=== PATIENT | male | born 1965 | race Caucasian/White ===

== ENCOUNTER 2019-04-11 16:25 | Emergency (ER) | payer OTHER, SELFPAY ==
[2019-04-11 16:35] VITALS: BP 150/99; PULSE 79; RESP 18; TEMP 37.3; O2SAT 95; BMI 32.5
--- NOTE | 2019-04-11 18:13 | ED.SKABFB ---
HPI - Skin/Abscess/Foreign Bdy General Chief complaint: Skin/Abscess/Foreign Body Stated complaint: Infection in face Time Seen by Provider: 04/11/19 18:02 Source: patient Mode of arrival: ambulatory Limitations: no limitations History of Present Illness HPI narrative: Patient is a 54-year-old presents with rash and swelling on his face. He says the he started last night over his nose and actually has progressed over his right cheek while sitting in the waiting room. She had some body aches and sweats last night. He also said he started getting some shortness of breath with exertion is yesterday as well. He does not really have chest pain he has a slight cough but not productive. He states he was using some sort of auto body protector on Friday and this started the following day. There is also some sanding done on Friday as well he is not sure if his it is an allergic reaction. He does feel like his neck is swollen and his voice is raspy. He said his nose with a little itchy initially but he really has no rash anywhere else. As he is able to manage his own secretions his tongue does not feel big. Related Data Home Medications Medication Instructions Recorded Confirmed aspirin 1 tab PO DAILY 04/11/19 04/11/19 atorvastatin 10 mg PO DAILY 04/11/19 04/11/19 methotrexate sodium 5 tab PO WEEKLY 04/11/19 04/11/19 Previous Rx's Medication Instructions Recorded doxycycline hyclate 100 mg PO BID #14 cap 04/11/19 Allergies Allergy/AdvReac Type Severity Reaction Status Date / Time No Known Drug Allergies Allergy Verified 04/11/19 16:30 Review of Systems Review of Systems ROS Unobtainable: All systems reviewed & are unremarkable except as noted in HPI and below Constitutional Reports chills, Reports fever(s), Denies lethargy and Denies weakness Eyes Denies change in vision, Denies eye discharge, Denies irritation and Denies loss of vision ENT Ears, Nose, Mouth, and Throat: Reports as per HPI and Reports hoarseness Cardiovascular Denies chest pain, Denies chest pain at rest, Denies edema and Reports dyspnea on exertion Respiratory Reports cough and Reports dyspnea on exertion Gastrointestinal Gastrointestinal: Denies abdominal pain, Denies change in bowel habits, Denies diarrhea, Denies nausea and Denies vomiting Genitourinary Denies hematuria, Denies flank pain, Denies urinary incontinence and Denies urinary urgency Musculoskeletal Denies back pain, Denies muscle weakness, Denies numbness and Denies tingling Integumentary/Breasts Reports as per HPI, Reports pruritus, Reports rash and Reports skin swelling Neurologic Denies confusion, Denies loss of vision, Denies numbness, Denies tingling and Denies weakness Psychiatric Denies anxiety, Denies confusion, Denies depression, Denies homicidal ideation and Denies suicidal ideation [facility] Medical History (Updated 04/11/19 @ 19:36 by Jo Sims DO) Coronary artery disease (Acute) Rheumatoid arthritis (Acute) Surgical History (Updated 04/11/19 @ 19:01 by Benito Martin RN) History of heart artery stent (Acute) Social History Smoking Status: Never smoker Social History Smoking Status: Never smoker Exam Initial Vital Signs Initial Vital Signs: Vital Signs Temperature 99.2 F 04/11/19 16:35 Pulse Rate 79 04/11/19 16:35 Respiratory Rate 18 04/11/19 16:35 Blood Pressure 150/99 H 04/11/19 16:35 Pulse Oximetry 95 04/11/19 16:35 GENERAL: Alert pleasant middle-aged male no acute distress HEENT: Head atraumatic,EOMI, pupils reactive, bilateral anterior cervical lymphadenopathy CARDIOVASCULAR: Regular rate and rhythm without murmurs, rubs or gallops. RESPIRATORY: Breath sounds equal bilaterally, no wheezes rales or rhonchi. Minimal hoarseness managing on secretions no stridor ABDOMEN: Soft, nontender. Normoactive bowel sounds all 4 quadrants. No guarding or rebound. EXTREMITIES: Normal range of motion, no clubbing or edema. Neurovascularly intact NEUROLOGICAL: Alert and oriented x4.Normal gait and speech. Cranial nerves II through XII grossly intact. SKIN: Right cheek 4 cm x 3 cm erythema his entire nose is swollen and erythematous a little bit over onto the left cheek as well. Course Orders Ordered: ED Orders 04/11/19 18:16 Complete Blood Count AUTO DIFF Stat Comprehensive Metabolic Panel Stat Lactate (Lactic Acid) Stat Lipase Stat Partial Thromboplastin Time Stat Procalcitonin Stat Prothrombin Time INR Stat Troponin & CK Cardiac Panel Stat 04/11/19 18:21 XR chest 1V Stat EKG-12 Lead Stat 04/11/19 18:35 Blood Culture Stat Discontinued Medications Doxycycline Hyclate (Vibramycin) 100 mg PO NOW ONE Stop: 04/11/19 19:40 Last Admin: 04/11/19 19:44 Dose: 100 mg Methylprednisolone (Solu-Medrol 125 Mg Vial) 125 mg IV NOW ONE Stop: 04/11/19 18:25 Last Admin: 04/11/19 18:39 Dose: 125 mg Vital Signs - 8 hr 04/11/19 19:52 Temperature 98.6 F Pulse Rate 73 Respiratory Rate 15 Blood Pressure 149/84 H Pulse Oximetry 96 MDM - Skin/Abscess/Foreign Bdy Lab Data Attestation: I reviewed the patient's lab results. Result diagrams: 04/11/19 18:16 04/11/19 18:16 Lab Results 04/11/19 04/11/19 04/11/19 Range/Units 18:16 18:16 18:16 WBC 10.9 (4.5-11.0) X10^3/uL RBC 5.28 (4.5-5.9) X10^6/uL Hgb 15.8 (13.5-17.5) g/dL Hct 45.8 (41-53) % MCV 86.7 (80-100) fL MCH 29.9 (26-34) PG MCHC 34.5 (30-36) % RDW 15.0 H (11.6-14.8) % Plt Count 184 (150-400) X10^3/uL Neut % (Auto) 68.2 (50-75) % Lymph % (Auto) 20.5 L (25-40) % Cors[place] % (Auto) 9.5 (3-14) % Eos % (Auto) 1.1 L (2-4) % Baso % (Auto) 0.7 (0-2) % Neut # (Auto) 7400 H (7560-1488) /uL Lymph # (Auto) 2200 (1242-6026) /uL Corson # (Auto) 1000 H (0-900) /uL Eos # (Auto) 100 (0-450) /uL Baso # (Auto) 100 (0-100) /uL PT 12.5 (10.1-12.7) SECONDS INR 1.1 (0.9-1.3) APTT 31 (26.4-36.2) SECONDS Sodium (137-145) mmol/L Potassium (3.4-5.1) mmol/L Chloride (98-107) mmol/L Carbon Dioxide (22-32) mmol/L BUN (9-20) mg/dL Creatinine (0.66-1.25) mg/dL Estimated GFR (>60) mL/min BUN/Creatinine Ratio (6-22) Glucose (70-100) mg/dL Lactate (0.7-2.1) mmol/L Calcium (8.4-10.2) mg/dL Total Bilirubin (0.2-1.3) mg/dL AST (17-59) IU/L ALT (21-72) IU/L Alkaline Phosphatase (38-126) U/L Total Creatine Kinase (55-170) U/L CK-MB (CK-2) (<2.37) ng/mL CK-MB (CK-2) Rel Index (1.5-5.0) % Troponin I (0.01-0.034) ng/mL Total Protein (6.3-8.2) g/dL Albumin (3.5-5.0) g/dL Globulin (1.7-4.1) g/dL Albumin/Globulin Ratio (1.0-2.8) Lipase (23-300) U/L Procalcitonin 0.17 (<0.5) ng/mL 04/11/19 04/11/19 04/11/19 Range/Units 18:16 18:16 18:16 WBC (4.5-11.0) X10^3/uL RBC (4.5-5.9) X10^6/uL Hgb (13.5-17.5) g/dL Hct (41-53) % MCV (80-100) fL MCH (26-34) PG MCHC (30-36) % RDW (11.6-14.8) % Plt Count (150-400) X10^3/uL Neut % (Auto) (50-75) % Lymph % (Auto) (25-40) % Corson % (Auto) (3-14) % Eos % (Auto) (2-4) % Baso % (Auto) (0-2) % Neut # (Auto) (0112-7777) /uL Lymph # (Auto) (5974-4089) /uL Corson # (Auto) (0-900) /uL Eos # (Auto) (0-450) /uL Baso # (Auto) (0-100) /uL PT (10.1-12.7) SECONDS INR (0.9-1.3) APTT (26.4-36.2) SECONDS Sodium 138 (137-145) mmol/L Potassium 3.7 (3.4-5.1) mmol/L Chloride 98 (98-107) mmol/L Carbon Dioxide 30 (22-32) mmol/L BUN 17 (9-20) mg/dL Creatinine 1.10 (0.66-1.25) mg/dL Estimated GFR > 60.0 (>60) mL/min BUN/Creatinine Ratio 15.5 (6-22) Glucose 97 (70-100) mg/dL Lactate 1.3 (0.7-2.1) mmol/L Calcium 9.3 (8.4-10.2) mg/dL Total Bilirubin 1.4 H (0.2-1.3) mg/dL AST 26 (17-59) IU/L ALT 32 (21-72) IU/L Alkaline Phosphatase 73 (38-126) U/L Total Creatine Kinase 153 (55-170) U/L CK-MB (CK-2) 0.23 (<2.37) ng/mL CK-MB (CK-2) Rel Index 0.2 L (1.5-5.0) % Troponin I < 0.012 (0.01-0.034) ng/mL Total Protein 8.2 (6.3-8.2) g/dL Albumin 4.5 (3.5-5.0) g/dL Globulin 3.7 (1.7-4.1) g/dL Albumin/Globulin Ratio 1.2 (1.0-2.8) Lipase 46 (23-300) U/L Procalcitonin (<0.5) ng/mL MDM Narrative Medical decision making narrative: The patient actually does not appear septic. Redness has not significantly worsened while he has been under my care. At this time I feel it is reasonable to try outpatient antibiotics. He was given a dose of steroids to see if it might be possible allergic. Who is placed on doctors clean help cover for strep and MRSA. He really has no risk factors for MRSA. I have given he and his signs and symptoms of when to return to the emergency department. Otherwise follow up with PCP. They both agree. Discharge Plan Departure Patient Disposition: Home Clinical Impression: Cellulitis Qualifiers: Site of cellulitis: face Qualified Code(s): L03.211 - Cellulitis of face Discharge Date/Time: 04/11/19 19:53 Interventions: ED Discharge Assessment Last Done: 04/11/19 19:52 Instructions: DI for Cellulitis -- Adult Activity Restrictions/Additional Instructions: *You have been diagnosed with facial cellulitis *What to do: Expect to have some swelling on in the morning. Antibiotics should start working in an attic 24-48 hours. *Continue to take medications as directed Doxycycline 100 mg twice a day for 7 days *Follow up with your primary care provider in 2-3 days *Return to ER if you should have significantly worsening all redness and facial swelling any difficulty breathing or any new, worsening or concerning symptoms Prescriptions: New doxycycline hyclate 100 mg capsule 100 mg PO BID Qty: 14 RF: 0 No Action atorvastatin 10 mg Tablet 10 mg PO DAILY RF: 0 aspirin 325 mg Tablet 1 tab PO DAILY RF: 0 methotrexate sodium 2.5 mg Tablet 5 tab PO WEEKLY RF: 0 Referrals: Slava Silva MD [Primary Care Provider] -
--- NOTE | 2019-04-11 18:21 | DI.RAD.S_ITS ---
PROCEDURE: XR CHEST 1V INDICATIONS: short of breath TECHNIQUE: One view of the chest was acquired. COMPARISON: [facility], , CHEST 1VW (PORTABLE), 02/01/2007, 15:33. FINDINGS: Surgical changes and devices: None. Lungs and pleura: Lungs are clear. No pleural effusions or pneumothorax. Mediastinum: Mediastinal contours appear normal. Heart size is normal. Bones and chest wall: No suspicious bony lesions. Overlying soft tissues appear unremarkable. IMPRESSION: Stable chest. No acute cardiopulmonary process is evident. Dictated by: Norbert Cantrell M.D. on 04/11/2019 at 18:55 Approved by: Norbert Cantrell M.D. on 04/11/2019 at 18:55
[2019-04-11 18:26] LABS: Add Manual Diff / Slide Review NO; Basophils Absolute Auto 100 /uL (0-100); Basophils Percent Auto 0.7 % (0-2); Eosinophils Absolute Auto 100 /uL (0-450); Eosinophils Percent Auto 1.1 % (2-4); Hematocrit 45.8 % (41-53); Hemoglobin 15.8 g/dL (13.5-17.5); Lymphocytes Absolute Auto 2200 /uL (1100-4500); Lymphocytes Percent Auto 20.5 % (25-40); Mean Corpuscular HGB Conc 34.5 % (30-36); Mean Corpuscular Hemoglobin 29.9 PG (26-34); Mean Corpuscular Volume 86.7 fL (80-100); Monocytes Absolute Auto 1000 /uL (0-900); Monocytes Percent Auto 9.5 % (3-14); Neutrophils Absolute Auto 7400 /uL (1500-7000); Neutrophils Percent Auto 68.2 % (50-75); Platelet Count 184 X10^3/uL (150-400); Red Blood Cell Count 5.28 X10^6/uL (4.5-5.9); White Blood Cell Count 10.9 X10^3/uL (4.5-11.0)
[2019-04-11 18:33] LABS: INR 1.1 (0.9-1.3); Prothrombin Time 12.5 SECONDS (10.1-12.7)
[2019-04-11 18:35] LABS: PTT Partial Thromboplastin Tim 31 SECONDS (26.4-36.2)
[2019-04-11 18:38] LABS: Lactate (Lactic Acid) 1.3 mmol/L (0.7-2.1)
[2019-04-11 18:39] LABS: Alanine Aminotransferase 32 IU/L (21-72); Albumin 4.5 g/dL (3.5-5.0); Albumin Globulin Ratio 1.2 (1.0-2.8); Alkaline Phosphatase 73 U/L (38-126); Aspartate Aminotransferase 26 IU/L (17-59); BUN Creatinine Ratio 15.5 (6-22); Bilirubin Total 1.4 mg/dL (0.2-1.3); Blood Urea Nitrogen 17 mg/dL (9-20); Calcium 9.3 mg/dL (8.4-10.2); Carbon Dioxide 30 mmol/L (22-32); Chloride 98 mmol/L (98-107); Estimated Glomerular Filt Rate > 60.0 mL/min (>60); Globulin 3.7 g/dL (1.7-4.1); Glucose 97 mg/dL (70-100); HEMOLYSIS < 15 (0-50); Lipase 46 U/L (23-300); Potassium 3.7 mmol/L (3.4-5.1); Sodium 138 mmol/L (137-145); Total Protein 8.2 g/dL (6.3-8.2)
[2019-04-11] MEDS: methylPREDNISolone 125 MG/2 ML VIAL IV (18:39)
[2019-04-11 18:42] LABS: Creatine Kinase 153 U/L (55-170)
[2019-04-11 18:54] LABS: Procalcitonin 0.17 ng/mL (<0.5)
[2019-04-11 18:55] LABS: Troponin I < 0.012 ng/mL (0.01-0.034)
[2019-04-11 18:57] LABS: CKMB % Relative Index 0.2 % (1.5-5.0); Creatine Kinase MB 0.23 ng/mL (<2.37)
[2019-04-11] MEDS: DOXYCYCLINE HYCLATE 100 MG TABLET PO (19:44)
[2019-04-11 19:52] VITALS: BP 149/84; PULSE 73; RESP 15; TEMP 37; O2SAT 96
== END 2019-04-11 19:53 | disposition home or self-care (01) ==
PROVIDERS: Emergency Medicine; Emergency Provider Emergency Medicine; PCP Family Medicine
DX: L03.211 Cellulitis of face (principal); R06.02 Shortness of breath
CPT/HCPCS: 36415; 36591; 71045; 80053; 82550; 82553; 83605; 83690; 84145; 84484; 85025; 85610; 85730; 87040; 93005; 96374; 99282; 99285; J2930

== ENCOUNTER → 2021-01-26 12:44 | Outpatient (CLI) | payer OTHER, SELFPAY ==
[2021-01-26] MEDS: COVID-19 VACC #1, MRNA(MOD) 100 MCG/0.5 ML VIAL IM (12:52)
== END ==
PROVIDERS: Visit Provider Internal Medicine
DX: Z23 Encounter for immunization (principal)
CPT/HCPCS: 0011A; 91301

== ENCOUNTER → 2021-02-23 12:43 | Outpatient (CLI) | payer OTHER, SELFPAY ==
[2021-02-23] MEDS: COVID-19 VACC #1, MRNA(MOD) 100 MCG/0.5 ML VIAL IM (12:57)
== END ==
PROVIDERS: Visit Provider Internal Medicine
DX: Z23 Encounter for immunization (principal)
CPT/HCPCS: 0011A; 91301

== ENCOUNTER → 2024-02-12 16:19 | Outpatient (CLI) | payer MEDICARE, SELFPAY ==
[2024-02-12 17:23] LABS: Alanine Aminotransferase 29 IU/L (<50); Albumin 4.5 g/dL (3.5-5.0); Albumin Globulin Ratio 1.5 (1.0-2.8); Alkaline Phosphatase 74 U/L (38-126); Aspartate Aminotransferase 29 IU/L (17-59); BUN Creatinine Ratio 18.9 (6-22); Bilirubin Total 0.9 mg/dL (0.2-1.3); Blood Urea Nitrogen 14 mg/dL (9-20); Calcium 9.1 mg/dL (8.4-10.2); Carbon Dioxide 27 mmol/L (22-32); Chloride 105 mmol/L (98-107); Estimated Glomerular Filt Rate > 60 mL/min (>60); Glucose 140 mg/dL (80-110); HEMOLYSIS < 15 (0-50); Potassium 3.5 mmol/L (3.4-5.1); Sodium 139 mmol/L (137-145); Total Protein 7.5 g/dL (6.3-8.2)
[2024-02-12 17:51] LABS: TSH w/ Reflex to FT4 0.71 uIU/mL (0.47-4.68)
[2024-02-12 18:02] LABS: Hemoglobin A1C% w Est Avg Glu 5.3 % (4.0-6.0)
== END ==
PROVIDERS: PCP Nurse Practitioner Family; Referring Provider Nurse Practitioner Family; Visit Provider Nurse Practitioner Family
DX: Z13.29 Encounter for screening for other suspected endocrine disorder (principal); Z13.1 Encounter for screening for diabetes mellitus; E78.5 Hyperlipidemia, unspecified; M06.9 Rheumatoid arthritis, unspecified
CPT/HCPCS: 36415; 80053; 83036; 84443

== ENCOUNTER → 2024-06-04 13:25 | Outpatient (CLI) | payer MEDICARE, SELFPAY ==
[2024-06-04 13:53] LABS: Add Manual Diff / Slide Review NO; Basophils Absolute Auto 0 /uL (0-100); Basophils Percent Auto 0.9 % (0-2); Eosinophils Absolute Auto 200 /uL (0-450); Eosinophils Percent Auto 2.9 % (2-4); Hematocrit 41.7 % (41-53); Hemoglobin 14.5 g/dL (13.5-17.5); Lymphocytes Absolute Auto 1500 /uL (1100-4500); Lymphocytes Percent Auto 26.2 % (25-40); Mean Corpuscular HGB Conc 34.7 % (30-36); Mean Corpuscular Hemoglobin 29.6 PG (26-34); Mean Corpuscular Volume 85.3 fL (80-100); Monocytes Absolute Auto 400 /uL (0-900); Monocytes Percent Auto 6.7 % (3-14); Neutrophils Absolute Auto 3700 /uL (1500-7000); Neutrophils Percent Auto 63.3 % (50-75); Platelet Count 240 X10^3/uL (150-400); Red Blood Cell Count 4.89 X10^6/uL (4.5-5.9); Red Cell Distribution Width 16.1 % (11.6-14.8); White Blood Cell Count 5.8 X10^3/uL (4.5-11.0)
[2024-06-04 14:15] LABS: Alanine Aminotransferase 35 IU/L (<50); Albumin 4.5 g/dL (3.5-5.0); Albumin Globulin Ratio 1.4 (1.0-2.8); Alkaline Phosphatase 73 U/L (38-126); Aspartate Aminotransferase 32 IU/L (17-59); BUN Creatinine Ratio 12.4 (6-22); Blood Urea Nitrogen 12 mg/dL (9-20); C-Reactive Protein Quant < 0.5 mg/dL (<1.0); Calcium 9.2 mg/dL (8.4-10.2); Carbon Dioxide 26 mmol/L (22-32); Chloride 107 mmol/L (98-107); Estimated Glomerular Filt Rate > 60 mL/min (>60); Globulin 3.3 g/dL (1.7-4.1); Glucose 96 mg/dL (80-110); HEMOLYSIS 26 (0-50); Potassium 4.3 mmol/L (3.4-5.1); Sodium 140 mmol/L (137-145); Total Protein 7.8 g/dL (6.3-8.2)
[2024-06-04 14:29] LABS: Erythrocyte Sedimentation Rate 13 MM/HR (0-15)
== END ==
PROVIDERS: PCP Nurse Practitioner Family; Referring Provider Physician Assistant; Visit Provider Physician Assistant
DX: M06.09 Rheumatoid arthritis without rheumatoid factor, multiple sites (principal); Z79.899 Other long term (current) drug therapy; M25.50 Pain in unspecified joint
CPT/HCPCS: 36415; 80053; 85025; 85651; 86140

== ENCOUNTER → 2024-06-17 08:11 | Outpatient (CLI) | payer MEDICARE, SELFPAY ==
[2024-06-17 11:25] LABS: Cholesterol 111 mg/dL (140-199); HDL Cholesterol 34 mg/dL (40-60); LDL Cholesterol Calculated 59 mg/dL (<100); Triglycerides 89 mg/dL (35-150)
[2024-06-17 11:51] LABS: Prostate Specific Antigen Scrn 2.04 ng/mL (0.1-4.0)
== END ==
PROVIDERS: PCP Nurse Practitioner Family; Referring Provider Nurse Practitioner Family; Visit Provider Nurse Practitioner Family
DX: E78.5 Hyperlipidemia, unspecified (principal); Z12.5 Encounter for screening for malignant neoplasm of prostate; R30.9 Painful micturition, unspecified
CPT/HCPCS: 36415; 80061; 87086; G0103

== ENCOUNTER 2024-07-30 12:25 | Day surgery (SDC) | payer MEDICARE, SELFPAY ==
[2024-07-30 13:17] VITALS: BP 151/71; PULSE 57; RESP 16; TEMP 36.1; O2SAT 98
[2024-07-30] MEDS: LACTATED RINGERS 1,000 ML 42 ML IV (13:39)
--- NOTE | 2024-07-30 13:50 | PM.HP.1 ---
History of Present Illness History of Present Illness Date Patient Seen: 07/30/24 Time Patient Seen: 13:51 Chief complaint: Screening Colonoscopy Narrative: 59-year-old male here for 1st time screening colonoscopy. No family history of colon cancer. No abdominal concerns today. [facility] Medical History BPH w/o urinary obs/LUTS Sleep apnea Allergies (~2019) Joint pain Carpal tunnel syndrome (~2011) Ankle pain (~2014) Mumps (~1968) Chicken pox (~1970) Hearing loss (~2002) History of heart attack Hypertension (~2000) Folliculitis barbae Skin lesions (~2023) Hyperlipidemia Coronary artery disease Rheumatoid arthritis Surgical History Anesthesia History of hip surgery (~2020) History of carpal tunnel surgery (~2011) History of heart artery stent Family History Mother History of heart disease Hypertension Hyperlipidemia Social History Smoking Status: Never smoker Meds Home Medications and Allergies Home Medications Medication Instructions Recorded Confirmed Type aspirin 325 mg tablet 1 tab PO DAILY 04/11/19 07/30/24 History methotrexate sodium 2.5 mg tablet 5 tab PO WEEKLY 04/11/19 07/23/24 History atorvastatin 10 mg tablet 40 mg PO DAILY 06/17/24 07/23/24 History losartan 25 mg tablet 25 mg PO BID 06/17/24 07/23/24 History clindamycin 1 %-benzoyl peroxide 5 1 applic topical DAILY #50 grams 07/23/24 07/23/24 Rx % topical gel with pump doxycycline hyclate 100 mg tablet 100 mg PO DAILY #42 tabs 07/23/24 07/23/24 Rx tamsulosin 0.4 mg capsule 0.8 mg (2 x 0.4 mg) PO DAILY #180 07/23/24 07/23/24 Rx caps Allergies Allergy/AdvReac Type Severity Reaction Status Date / Time amoxicillin Allergy Severe Hives Verified 07/30/24 13:09 Exam Vital Signs (past 8 hours): - 07/30/24 13:17 Temperature 97 F L Pulse Rate 57 L Respiratory Rate 16 Blood Pressure 151/71 H Pulse Oximetry 98 Oxygen Delivery Method Room Air Oxygen Delivery Method Room Air Narrative Exam Narrative: General adult man alert oriented no acute distress Chest nonlabored respiration Extremities warm well perfused Assessment & Plan Assessment & Plan narrative: The patient requires colorectal screening and colonoscopy is recommended. Technical details were discussed. Risks, benefits, alternatives explained. Risks including but not limited to myocardial infarction, aspiration, bleeding, pain, missed lesion, incomplete examination, need for further radiographic studies, intestinal injury, and need for major abdominal surgery were discussed. All questions were answered to their satisfaction, and they are in agreement with this plan. Time-Based Coding :: [TOTAL MINUTES] spent with patient and on the chart (including review of chart, obtaining history, exam, reviewing outside data, placing orders, documenting exam and treatment plan, and counseling patient) on [DATE].
[2024-07-30 14:20] VITALS: BP 94/52; PULSE 56; RESP 12; TEMP 36.3; O2SAT 98
[2024-07-30 14:24] VITALS: BP 102/57; PULSE 58; RESP 17; O2SAT 98
--- NOTE | 2024-07-30 14:25 | P.OP.COLON_ITS ---
Operative Date/Time/Diagnoses Date of procedure: 07/30/24 Time of procedure: 14:25 Pre-op diagnosis: Screening Procedure & Clinicians Study performed: Screening colonoscopy Same procedure as scheduled: Yes Indications: Screening Surgeon: Abraham Hutchins Procedure Notes Procedure in detail: The history and physical was performed/updated and the patient is ASA class is 2. The procedure was discussed in detail with the patient. Potential risks complications including infection, bleeding, missed diagnosis, perforation, need for surgery, and were explained. Their questions were answered and informed consent was obtained. Patient was brought to the procedure room and placed standard monitoring equipment. The patient's vital signs were monitored continuously throughout the entire procedure. Prior to starting time-out was performed. The patient was placed in the left lateral recumbent position. Procedural sedation was administered by anesthesia. Examination began with a thorough inspection of the perianal area there was no evidence of fissures, fistulae, external hemorrhoids or cutaneous malignancy. The colonoscopy scope was then placed into the anal canal and was advanced to the cecum, which was identified by the ileocecal valve, the appendiceal orifice and the confluence of the taenia. The scope was then slowly withdrawn examining colon thoroughly in all directions, irrigating it of any residual stool. The scope was retroflexed within the rectum The patient tolerated the procedure well. They will be discharged once criteria are met. The prep was of good/excellent quality. The withdrawl time was 7 minutes. FINDINGS * Unremarkable colonoscopy. Normal healthy colonic mucosa without mass or polyps. Specimen(s): none sent Impression: Normal colonoscopy Post-procedure Recommendations: Colonoscopy in 10 years Disposition: same day surgery
[2024-07-30 14:30] VITALS: BP 108/65; PULSE 58; RESP 12; O2SAT 97
== END 2024-07-30 14:40 | disposition home or self-care (01) ==
PROVIDERS: PCP Nurse Practitioner Family; Referring Provider Surgery; Visit Provider Surgery
PROC: 0DJD8ZZ Inspection of Lower Intestinal Tract, Via Natural or Artificial Opening Endoscopic (ICD-10-PCS; CPT 45378; principal; 2024-07-30 14:00)
DX: Z12.11 Encounter for screening for malignant neoplasm of colon (principal)
CPT/HCPCS: G0121; J2704

== ENCOUNTER → 2024-10-28 08:19 | Outpatient (CLI) | payer MEDICARE, SELFPAY ==
[2024-10-28 08:48] LABS: Appearance Urine UA CLEAR; Bilirubin Urine UA NEGATIVE (NEGATIVE); Color Urine UA YELLOW; Glucose Urine UA NEGATIVE (Negative); Ketones Urine UA NEGATIVE (NEGATIVE); Leukocyte Esterase Urine UA NEGATIVE (NEGATIVE); Nitrite Urine UA NEGATIVE (Negative); Occult Blood Urine UA 1+ (Negative); Protein Urine UA NEGATIVE (Negative); Specific Gravity Urine UA 1.025 (1.000-1.035); Urobilinogen Urine UA 0.2 E.U./dL (0.2); pH Urine UA 5.5 (4.5-8.0)
[2024-10-28 09:02] LABS: Bacteria Urine Occasional (0-1); Culture Indicated Urine Cult Not Indicated; Hyaline Casts Urine 0-1/LPF; RBC Urine 5-10/HPF (0-5/HPF); Squamous Epithelial Cell Urine 5-10 /HPF (0-5/HPF); Urine Volume 10mL (spun); WBC Urine 0-1/HPF (0-5/HPF)
== END ==
PROVIDERS: PCP Nurse Practitioner Family; Visit Provider Nurse Practitioner Family
DX: R31.9 Hematuria, unspecified (principal); R30.0 Dysuria
CPT/HCPCS: 81003; 81015

== ENCOUNTER → 2024-10-28 08:34 | Outpatient (CLI) | payer MEDICARE, SELFPAY ==
[2024-10-28 09:14] LABS: Add Manual Diff / Slide Review NO; Basophils Absolute Auto 0 /uL (0-100); Basophils Percent Auto 0.6 % (0-2); Eosinophils Absolute Auto 100 /uL (0-450); Eosinophils Percent Auto 2.5 % (2-4); Hematocrit 42.3 % (41-53); Hemoglobin 14.1 g/dL (13.5-17.5); Lymphocytes Absolute Auto 1100 /uL (1100-4500); Lymphocytes Percent Auto 20.5 % (25-40); Mean Corpuscular HGB Conc 33.3 % (30-36); Mean Corpuscular Hemoglobin 29.1 PG (26-34); Mean Corpuscular Volume 87.3 fL (80-100); Monocytes Absolute Auto 400 /uL (0-900); Monocytes Percent Auto 6.6 % (3-14); Neutrophils Absolute Auto 3900 /uL (1500-7000); Neutrophils Percent Auto 69.8 % (50-75); Platelet Count 156 X10^3/uL (150-400); Red Blood Cell Count 4.85 X10^6/uL (4.5-5.9); Red Cell Distribution Width 16.1 % (11.6-14.8); White Blood Cell Count 5.6 X10^3/uL (4.5-11.0)
[2024-10-28 09:44] LABS: Alanine Aminotransferase 33 IU/L (<50); Albumin 3.8 g/dL (3.5-5.0); Albumin Globulin Ratio 1.3 (1.0-2.8); Alkaline Phosphatase 73 U/L (38-126); Aspartate Aminotransferase 25 IU/L (17-59); BUN Creatinine Ratio 20.7 (6-22); Bilirubin Total 0.9 mg/dL (0.2-1.3); Blood Urea Nitrogen 18 mg/dL (9-20); Calcium 9.3 mg/dL (8.4-10.2); Carbon Dioxide 30 mmol/L (22-32); Chloride 106 mmol/L (98-107); Estimated Glomerular Filt Rate > 60 mL/min (>60); Glucose 96 mg/dL (80-110); HEMOLYSIS < 15 (0-50); Potassium 3.9 mmol/L (3.4-5.1); Sodium 139 mmol/L (137-145); Total Protein 6.8 g/dL (6.3-8.2)
== END ==
PROVIDERS: PCP Nurse Practitioner Family; Referring Provider Nurse Practitioner Family; Visit Provider Nurse Practitioner Family
DX: R31.9 Hematuria, unspecified (principal); R30.0 Dysuria
CPT/HCPCS: 36415; 80053; 81003; 81015; 85025

== ENCOUNTER → 2024-10-29 12:44 | Outpatient (CLI) | payer MEDICARE, SELFPAY ==
--- NOTE | 2024-10-29 12:44 | DI.CT.S_ITS ---
PROCEDURE: CT KIDNEY URETER BLADDER (KUB) INDICATIONS: Hematuria TECHNIQUE: Axial sections were acquired from the lung bases to the pubic symphysis. Coronal and sagittal reformats were performed. For radiation dose reduction, the following was used: automated exposure control, adjustment of mA and/or kV according to patient size. COMPARISON: None. FINDINGS: Image quality: Diagnostic. Lower Chest: No significant findings. URINARY: Right Kidney: No stones or hydronephrosis. Right Ureter: No hydroureter. Left Kidney: No stones or hydronephrosis. There is a 2.9 cm exophytic left lower renal cortical pole cyst. Left Ureter: No hydroureter. Bladder: Normal wall thickness. No stones. ABDOMEN: Liver: No contour-deforming solid mass. Gallbladder: No radiopaque gallstones or wall thickening, contracted. Biliary ducts: No biliary dilation. Pancreas: No ductal dilation. Spleen: Size is within normal limits. Adrenal Glands: No adrenal nodules. Stomach and Bowel: Normal colonic caliber, without significant wall thickening. Peritoneum: No abnormal intraperitoneal fluid. No free air. Ventral Wall: No hernia. Abdominal Nodes: No enlarged retroperitoneal or mesenteric lymph nodes. Vessels: Aorta and inferior vena cava are normal in size. PELVIS: Pelvic Organs: Unremarkable. Pelvic Nodes: Unremarkable. Miscellaneous: No inguinal hernias are seen. Bones: Unremarkable. IMPRESSION: No obstructing stones or hydronephrosis. This study was performed without contrast enhancement. Accurate detection of renal cortical mass or urothelial neoplasm is therefore significantly limited. Continued clinical follow-up is recommended and retrograde urinary tract assessment may become necessary. Dictated by: Raphael Davis M.D. on 10/29/2024 at 15:58 Approved by: Raphael Davis M.D. on 10/29/2024 at 16:01
== END ==
PROVIDERS: PCP Nurse Practitioner Family; Referring Provider Nurse Practitioner Family; Visit Provider Nurse Practitioner Family
DX: N40.0 Benign prostatic hyperplasia without lower urinary tract symptoms (principal); R31.9 Hematuria, unspecified; N28.1 Cyst of kidney, acquired
CPT/HCPCS: 74176

== ENCOUNTER 2024-11-04 23:03 | Emergency (ER) | payer MEDICARE, SELFPAY ==
[2024-11-04 23:09] VITALS: BP 131/71; PULSE 70; O2SAT 99
[2024-11-04 23:17] VITALS: BP 131/71; PULSE 72; RESP 18; TEMP 36.3; O2SAT 99; BMI 31.4
--- NOTE | 2024-11-04 23:26 | ED_ITS ---
HPI - Back Pain/Injury General Chief Complaint: Back Pain/Injury Stated Complaint: prostate, back and left arm pain Time Seen by Provider: 11/04/24 23:05 Source: patient Mode of arrival: Ambulatory Limitations: no limitations History of Present Illness HPI Narrative: Patient was a 59-year-old male who is here for evaluation hematuria, known elevation elevation in his prostate. States he was feeling like he was emptying his bladder. Is having some lower back pain but that is not necessarily new today. He stated that earlier today he started to have pain in his left shoulder. It radiates down his left arm. Goes to his left jaw. He was had a heart attack in the past. This feels different than his heart attack. It was not remember a specific incident although he did move a propane tank off the back of his truck with his left arm and turned awkwardly and thinks that maybe he pulled a muscle in his back/neck after that. Has discomfort in his left shoulder. Difficulty with moving his left shoulder because of pain. His left elbow and left wrist are unremarkable. No fevers. No chest pain or shortness of breath. Related Data Home Medications Medication Instructions Recorded Confirmed aspirin 325 mg tablet 1 tab PO DAILY 04/11/19 10/28/24 methotrexate sodium 2.5 mg tablet 5 tab PO WEEKLY 04/11/19 10/28/24 atorvastatin 40 mg tablet 40 mg PO DAILY 10/28/24 10/28/24 folic acid 1 mg tablet 1 mg PO DAILY 10/28/24 10/28/24 losartan 25 mg tablet 25 mg PO DAILY 10/28/24 10/28/24 tamsulosin 0.4 mg capsule 0.4 - 0.8 mg PO DAILY 10/28/24 10/28/24 Previous Rx's Medication Instructions Recorded cyclobenzaprine 10 mg tablet 10 mg PO TID PRN muscle spasm #10 11/05/24 tabs hydrocodone 5 mg-acetaminophen 325 1 tab PO Q6H PRN pain #7 tabs 11/05/24 mg tablet Allergies Allergy/AdvReac Type Severity Reaction Status Date / Time amoxicillin Allergy Severe Hives Verified 10/28/24 07:55 Review of Systems Review of Systems ROS Unobtainable: All systems reviewed & are unremarkable except as noted in HPI and below Patient History Medical History BPH w/o urinary obs/LUTS Sleep apnea Allergies (~2019) Joint pain Carpal tunnel syndrome (~2011) Ankle pain (~2014) Mumps (~1968) Chicken pox (~1970) Hearing loss (~2002) History of heart attack Hypertension (~2000) Folliculitis barbae Skin lesions (~2023) Hyperlipidemia Coronary artery disease Rheumatoid arthritis Surgical History Anesthesia History of hip surgery (~2020) History of carpal tunnel surgery (~2011) History of heart artery stent Family History Mother History of heart disease Hypertension Hyperlipidemia Social History Smoking Status: Former smoker Smoking Status: Former smoker alcohol intake frequency: other Exam Initial Vital Signs Initial Vital Signs: Vital Signs Pulse Rate 70 11/04/24 23:09 Blood Pressure 131/71 11/04/24 23:09 Pulse Oximetry 99 11/04/24 23:09 Const General: cooperative, comfortable and No ill appearing HENMT Head: normal to inspection and normocephalic Resp Effort & Inspection: normal respiratory effort Auscultation: clear to auscultation bilaterally Cardio Rate: regular rate Rhythm: regular rhythm Pulses: radial pulses present on the left Skin General: no rashes or lesions noted Neuro Sensory Exam: no sensory deficits noted Extrem Other: Patient reports discomfort with palpation of the lateral and superior aspect of the left shoulder. Also discomfort on the upper back on the left side. No cervical spine tenderness. His left elbow and left wrist are unremarkable. Course Orders Ordered: ED Orders 11/04/24 23:27 XR shoulder LT min 2V Stat EKG-12 Lead Stat 11/04/24 23:45 Complete Blood Count AUTO DIFF Stat Comprehensive Metabolic Panel Stat Lipase Stat Troponin & CK Cardiac Panel Stat 11/05/24 00:02 Urine Microscopic Stat Discontinued Medications Hydrocodone Bitart/Acetaminophen (Hydrocodone/Acet 5/325 Prepack) 1 bottle MISC DIRECTED ONE Stop: 11/05/24 00:36 Cyclobenzaprine HCl (Cyclobenzaprine 10 Mg Prepack) 1 bottle MISC DIRECTED ONE Stop: 11/05/24 00:36 Hydromorphone HCl (Hydromorphone 1 Mg Inj) 1 mg IV NOW ONE Stop: 11/04/24 23:28 Last Admin: 11/04/24 23:36 Dose: 1 mg Documented By: EMILY Ketorolac Tromethamine (Ketorolac 30 Mg/Ml Vial) 15 mg IV NOW ONE Stop: 11/04/24 23:28 Last Admin: 11/04/24 23:36 Dose: 15 mg Documented By: EMILY Vital Signs Vital signs: Vital Signs - 8 hr 11/04/24 23:09 11/04/24 23:09 11/04/24 23:17 Temperature 97.3 F L Pulse Rate 70 72 Respiratory Rate 18 Blood Pressure 131/71 131/71 Pulse Oximetry 99 99 Oxygen Delivery Method Room Air 11/04/24 23:52 11/05/24 00:00 11/05/24 00:08 Temperature Pulse Rate 77 73 Respiratory Rate 19 Blood Pressure 139/80 Pulse Oximetry 97 97 Oxygen Delivery Method 11/05/24 00:08 Temperature Pulse Rate 70 Respiratory Rate 17 Blood Pressure Pulse Oximetry 97 Oxygen Delivery Method MDM - Back Pain/Injury Lab Data Attestation: I reviewed the patient's lab results. 11/04/24 23:45 11/04/24 23:45 Labs: Lab Results 11/04/24 11/05/24 Range/Units 23:45 00:02 WBC 9.2 (4.5-11.0) X10^3/uL RBC 4.79 (4.5-5.9) X10^6/uL Hgb 13.9 (13.5-17.5) g/dL Hct 40.8 L (41-53) % MCV 85.3 (80-100) fL MCH 29.1 (26-34) PG MCHC 34.2 (30-36) % RDW 15.7 H (11.6-14.8) % Plt Count 173 (150-400) X10^3/uL Neut % (Auto) 89.2 H (50-75) % Lymph % (Auto) 5.6 L (25-40) % Allen % (Auto) 3.7 (3-14) % Eos % (Auto) 0.8 L (2-4) % Baso % (Auto) 0.7 (0-2) % Neut # (Auto) 8200 H (1949-3270) /uL Lymph # (Auto) 500 L (7210-7700) /uL Allen # (Auto) 300 (0-900) /uL Eos # (Auto) 100 (0-450) /uL Baso # (Auto) 100 (0-100) /uL Sodium 138 (137-145) mmol/L Potassium 3.5 (3.4-5.1) mmol/L Chloride 104 (98-107) mmol/L Carbon Dioxide 29 (22-32) mmol/L BUN 15 (9-20) mg/dL Creatinine 0.89 (0.66-1.25) mg/dL Estimated GFR > 60 (>60) mL/min BUN/Creatinine Ratio 16.9 (6-22) Glucose 124 H (80-110) mg/dL Calcium 9.1 (8.4-10.2) mg/dL Total Bilirubin 0.9 (0.2-1.3) mg/dL AST 29 (17-59) IU/L ALT 35 (<50) IU/L Alkaline Phosphatase 84 (38-126) U/L Total Creatine Kinase 56 (55-170) U/L Troponin I < 0.012 (0.01-0.034) ng/mL Total Protein 7.2 (6.3-8.2) g/dL Albumin 4.0 (3.5-5.0) g/dL Globulin 3.2 (1.7-4.1) g/dL Albumin/Globulin Ratio 1.3 (1.0-2.8) Lipase 42 (23-300) U/L Urine RBC 0-1/hpf (0-5/HPF) Urine WBC None seen (0-5/HPF) Ur Squamous Epith Cells 0-1 /hpf (0-5/HPF) Urine Bacteria None seen (None) Ur Culture Indicated? Cult not indicated Vol Urine Centrifuged 10ml (spun) Urine Dip Bedside Urine Glucose Negative Bedside Urine Bilirubin - Negative Bedside Urine Ketone +/- 5 Urine Specific [place] 1.015 Bedside Urine Occult Blood +/- Bedside Urine pH 7.0 Bedside Urine Protein +/- 15 Bedside Urine Urobilinogen - Negative Bedside Urine Nitrite - Negative Bedside Urine Leukocytes - Negative Esterase Imaging Data Extremity x-ray #1: Radiologist's Impression: PROCEDURE: XR SHOULDER LT MIN 2V INDICATIONS: pain after lifting injury TECHNIQUE: 3 views of the shoulder were acquired. COMPARISON: None. FINDINGS: Bones: No fractures or dislocations. [id number] acromioclavicular joint and glenohumeral joint osteoarthritic changes are seen. No suspicious bony lesions. Visualized ribs appear intact. Soft tissues: No suspicious soft tissue calcifications. IMPRESSION: No acute shoulder fracture or dislocation. [id number] shoulder joint osteoarthritis. No gross soft tissue abnormalities. ECG Data Attestation: I personally reviewed and interpreted this ECG as follows: Interpretation: Sinus rhythm Ventricular rate is 67 Normal axis Normal QRS Normal QTC No ST T wave changes MDM Narrative Medical decision making narrative: Patient does have hematuria but no signs of an acute infection. Low suspicion for pyelonephritis. LFTs and lipase unremarkable. Labs unremarkable. Kidney functions unremarkable. EKGs unremarkable. Troponins negative. X-ray shows no acute pathology. You do have a high suspicion that this is muscular given his presentation today. I have low suspicion for ACS. Unsure as to whether or not he may have a rotator cuff injury but I can not test for this because any movement of his left shoulder is uncomfortable. He does report some improvement with pain medication. Will send home with a sling but he understands that he should spend as much time out of the sling as possible. Recommended other conservative measures. I have him contact his primary care doctor for follow- up. He expressed understanding and agreement. Discharge Plan Departure Patient Disposition: Home Clinical Impression: Left shoulder strain, Hematuria Instructions: DI for Shoulder Pain Activity Restrictions/Additional Instructions: The sling is for your comfort however I do recommend that you try to be out of the sling as much as possible like we discussed. Conservative measures such as heat/ice/massage/ light stretching can be helpful as well. Use the medications as needed and as directed. Contact your primary care doctor for a follow-up. Prescriptions: New cyclobenzaprine 10 mg tablet 10 mg PO TID PRN (Reason: muscle spasm) Qty: 10 0RF hydrocodone-acetaminophen 5-325 mg tablet 1 tab PO Q6H PRN (Reason: pain) Qty: 7 0RF No Action losartan 25 mg tablet 25 mg PO DAILY tamsulosin 0.4 mg capsule 0.4 - 0.8 mg PO DAILY atorvastatin 40 mg tablet 40 mg PO DAILY folic acid 1 mg tablet 1 mg PO DAILY aspirin 325 mg Tablet 1 tab PO DAILY methotrexate sodium 2.5 mg Tablet 5 tab PO WEEKLY Referrals: Estrella Malloy, [employer] [Primary Care Provider] - Stand Alone Forms: Patient Portal/API/Survey
--- NOTE | 2024-11-04 23:27 | DI.RAD.S_ITS ---
PROCEDURE: XR SHOULDER LT MIN 2V INDICATIONS: pain after lifting injury TECHNIQUE: 3 views of the shoulder were acquired. COMPARISON: None. FINDINGS: Bones: No fractures or dislocations. Kzif-er-cjhoqbvd acromioclavicular joint and glenohumeral joint osteoarthritic changes are seen. No suspicious bony lesions. Visualized ribs appear intact. Soft tissues: No suspicious soft tissue calcifications. IMPRESSION: No acute shoulder fracture or dislocation. [id number] shoulder joint osteoarthritis. No gross soft tissue abnormalities. Dictated by: Mu Farrar M.D. on 11/05/2024 at 0:19 Approved by: Mu Farrar M.D. on 11/05/2024 at 0:19
--- NOTE | 2024-11-04 23:27 | EKG_ITS ---
[facility] [address] [address] Test Date: 2024-11-04 Pat Name: Robbie Larose Department: [facility] Room: Gender: Male Sound Assistant: HARJIT HELIO : 1965 Requested By: Order Number: [id number] Reading MD: Bishop Buck MD Measurements Intervals [place] Rate: 67 P: 45 [place]: 140 QRS: 10 QRSD: 102 T: 2 QT: 384 QTc: 405 Interpretive Statements Normal sinus rhythm Electronically Signed On 11-05-2024 7:10:46 PST by Bishop Buck MD
[2024-11-04] MEDS: HYDROMORPHONE 1 MG INJ IV (23:36)
[2024-11-04] MEDS: KETOROLAC 30 MG/ML VIAL 15 MG IV (23:36)
[2024-11-04 23:52] VITALS: PULSE 77; O2SAT 97
[2024-11-04 23:54] LABS: Add Manual Diff / Slide Review NO; Basophils Absolute Auto 100 /uL (0-100); Basophils Percent Auto 0.7 % (0-2); Eosinophils Absolute Auto 100 /uL (0-450); Eosinophils Percent Auto 0.8 % (2-4); Hematocrit 40.8 % (41-53); Hemoglobin 13.9 g/dL (13.5-17.5); Lymphocytes Absolute Auto 500 /uL (1100-4500); Lymphocytes Percent Auto 5.6 % (25-40); Mean Corpuscular HGB Conc 34.2 % (30-36); Mean Corpuscular Hemoglobin 29.1 PG (26-34); Mean Corpuscular Volume 85.3 fL (80-100); Monocytes Absolute Auto 300 /uL (0-900); Monocytes Percent Auto 3.7 % (3-14); Neutrophils Absolute Auto 8200 /uL (1500-7000); Neutrophils Percent Auto 89.2 % (50-75); Platelet Count 173 X10^3/uL (150-400); Red Blood Cell Count 4.79 X10^6/uL (4.5-5.9); Red Cell Distribution Width 15.7 % (11.6-14.8); White Blood Cell Count 9.2 X10^3/uL (4.5-11.0)
[2024-11-05] VITALS: PULSE 73; RESP 19; O2SAT 97
[2024-11-05 00:08] VITALS: BP 139/80; PULSE 70; RESP 17; O2SAT 97
[2024-11-05 00:10] LABS: Alanine Aminotransferase 35 IU/L (<50); Albumin Globulin Ratio 1.3 (1.0-2.8); Alkaline Phosphatase 84 U/L (38-126); Aspartate Aminotransferase 29 IU/L (17-59); BUN Creatinine Ratio 16.9 (6-22); Bilirubin Total 0.9 mg/dL (0.2-1.3); Blood Urea Nitrogen 15 mg/dL (9-20); Calcium 9.1 mg/dL (8.4-10.2); Carbon Dioxide 29 mmol/L (22-32); Chloride 104 mmol/L (98-107); Creatine Kinase 56 U/L (55-170); Estimated Glomerular Filt Rate > 60 mL/min (>60); Globulin 3.2 g/dL (1.7-4.1); Glucose 124 mg/dL (80-110); HEMOLYSIS < 15 (0-50); Lipase 42 U/L (23-300); Potassium 3.5 mmol/L (3.4-5.1); Sodium 138 mmol/L (137-145); Total Protein 7.2 g/dL (6.3-8.2)
[2024-11-05 00:19] LABS: Bacteria Urine None Seen; Culture Indicated Urine Cult Not Indicated; RBC Urine 0-1/HPF (0-5/HPF); Squamous Epithelial Cell Urine 0-1 /HPF (0-5/HPF); Urine Volume 10mL (spun); WBC Urine None Seen (0-5/HPF)
[2024-11-05 00:22] LABS: Troponin I < 0.012 ng/mL (0.01-0.034)
[2024-11-05 00:30] VITALS: PULSE 66; RESP 13; O2SAT 98
[2024-11-05] MEDS: HYDROCODONE/ACET 5/325 PREPACK 1 BOTTLE MISC (00:48)
[2024-11-05] MEDS: CYCLOBENZAPRINE 10 MG PREPACK 1 BOTTLE MISC (00:48)
== END 2024-11-05 01:10 | disposition home or self-care (01) ==
PROVIDERS: Emergency Provider Emergency Medicine; PCP Nurse Practitioner Family
DX: S46.912A Strain of unspecified muscle, fascia and tendon at shoulder and upper arm level, left arm, initial encounter (principal); R31.9 Hematuria, unspecified; M54.50 Low back pain, unspecified; I25.2 Old myocardial infarction; X58.XXXA Exposure to other specified factors, initial encounter
CPT/HCPCS: 36415; 51798; 73030; 80053; 81003; 81015; 82550; 83690; 84484; 85025; 93005; 93010; 96374; 96375; 99284; J1171; J1885